=== PATIENT | male | born 1980 | race Caucasian/White ===

== ENCOUNTER 2017-08-29 11:18 | Emergency (ER) | payer OTHER ==
--- NOTE | 2017-08-29 12:32 | XR ---
EXAMINATION TYPE: XR elbow complete RT DATE OF EXAM: 08/29/2017 CLINICAL HISTORY: Pain after lifting injury. TECHNIQUE: Frontal, lateral and oblique images of the right elbow are obtained. COMPARISON: None FINDINGS: There is no acute fracture/dislocation evident in the right elbow. No abnormal fat pad si gns are seen. Tiny spur from the olecranon at triceps tendon attachment is noted . The overlying soft tissue appears unremarkable. IMPRESSION: There is no acute fracture or dislocation in the right elbow.
--- NOTE | 2017-08-29 12:50 | ED ---
Upper Extremity HPI - General Chief Complaint: Extremity Injury, Upper Stated Complaint: Arm injury Time Seen by Provider: 08/29/17 11:51 Source: patient, RN notes reviewed, old records reviewed Mode of arrival: ambulatory Limitations: no limitations - History of Present Illness Initial Comments: 37-year-old male presents emergency Department chief complaint of right middle elbow injury. Patient reports that he was lifting 600 pounds well-developed and lifting. He reports that he felt his medial biceps tendon snap. He states he felt it recoiled to his arm. 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 He also is in the [employer]. He is left-handed. Patient states he has pain with extension and flexion of the elbow. - Related Data Home Medications Medication Instructions Recorded Confirmed Testosterone Cypionate 300 mg IM TU 08/29/17 08/29/17 [Depo-Testosterone] Previous Rx's Medication Instructions Recorded Ibuprofen 600 mg PO TID #20 tablet 08/29/17 Allergies Allergy/AdvReac Type Severity Reaction Status Date / Time No Known Allergies Allergy Verified 08/29/17 12:06 Review of Systems ROS Statement: Those systems with pertinent positive or pertinent negative responses have been documented in the HPI. ROS Other: All systems not noted in ROS Statement are negative. 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 Alert and oriented. No distress. Limitations: no limitations General appearance: alert, in no apparent distress Head exam: Present: atraumatic, normocephalic, normal inspection Eye exam: Present: normal appearance, PERRL, EOMI. Absent: scleral icterus, conjunctival injection, periorbital swelling ENT exam: Present: normal exam, mucous membranes moist Neck exam: Present: normal inspection. Absent: tenderness, meningismus, lymphadenopathy Respiratory exam: Present: normal lung sounds bilaterally. Absent: respiratory distress, wheezes, rales, rhonchi, stridor Cardiovascular Exam: Present: regular rate, normal rhythm, normal heart sounds. Absent: systolic murmur, diastolic murmur, rubs, gallop, clicks GI/Abdominal exam: Present: soft, normal bowel sounds. Absent: distended, tenderness, guarding, rebound, rigid Right Shoulder Exam: Present: normal inspection, full ROM Upper Arm exam: Present: normal inspection, full ROM Elbow exam: Present: tenderness (over medial antecubital fossa), other (Able to palpatate end of bicep). Absent: normal inspection, full ROM (Patient reports pain with full extension and has limited flexion..) Forearm Wrist exam: Present: normal inspection, full ROM Hand Wrist exam: Present: normal inspection, full ROM Neuro motor exam: Present: wrist extension intact, thumb opposition intact, thumb IP flexion intact, thumb adduction intact, fingers 2-5 abduction intact Vascular: Present: normal capillary refill Back exam: Present: normal inspection Neurological exam: Present: alert, oriented X3, CN II-XII intact Psychiatric exam: Present: normal affect, normal mood Skin exam: Present: warm, dry, intact, normal color. Absent: rash Course Vital Signs 08/29/17 08/29/17 11:32 13:14 Temperature 98.3 F 98.2 F Pulse Rate 88 87 Respiratory 16 18 Rate Blood Pressure 133/74 150/76 O2 Sat by Pulse 100 98 Oximetry Procedures - Orthopedic Splinting/Casting Injury #1 Side: right Upper Extremity Injury Location: elbow Upper Extremity Immobilizer: sling/shoulder immobilizer Medical Decision Making - Medical Decision Making 37-year-old male presents emergency Department chief complaint of right elbow pain. He was doing a lift and felt a pop and snap in his biceps tendon. He states he was lifting 600 pounds. 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 Patient has palpable tendon in the antecubital fossa. He has pain with full extension and flexion. Patient has normal elbow x-ray. I met with the Patient in a sling and discussed close follow-up with vendor management specialist. Given a few referrals. I discussed the likely will need surgery for tendon repair. Patient agrees to treatment plan will comply. Return parameters were discussed. - Radiology Data Radiology results: report reviewed No acute fracture dislocation of the right elbow. Disposition Clinical Impression: Traumatic partial tear of right biceps tendon Disposition: HOME SELF-CARE Condition: Good Instructions: Tendon Rupture (ED) Additional Instructions: [facility]. Wear the sling. Type laboratory medication for pain. Patient should not to any further lifting until seen by orthopedic. Prescriptions: Ibuprofen 600 mg PO TID #20 tablet Is patient prescribed a controlled substance at d/c from ED?: No When asked, does pt state using other controlled substances?: No If prescribed controlled substance>3 days was MAPS reviewed?: No If opioid is for acute pain is fill amount 7 days or less?: No If Rx opioid, was Start Talking consent form obtained?: No Referrals: Kirk Menon MD [Primary Care Provider] - 1-2 days Chavez Dougherty MD [STAFF PHYSICIAN] - 1-2 days Avinash Farias MD [STAFF PHYSICIAN] - 1-2 days Time of Disposition: 13:05
[2017-08-29 13:15] VITALS: BP 150/76; PULSE 87; RESP 18; TEMP 98.2
== END 2017-08-29 13:21 | disposition home or self-care (01) ==
LOC: EDSEX → EC 11:18
DX: S46.211A Strain of muscle, fascia and tendon of other parts of biceps, right arm, initial encounter (principal); Z79.899 Other long term (current) drug therapy; Z85.47 Personal history of malignant neoplasm of testis; Z90.79 Acquired absence of other genital organ(s); X50.0XXA Overexertion from strenuous movement or load, initial encounter; Y93.B3 Activity, free weights
CPT/HCPCS: 99284

== ENCOUNTER → 2020-11-15 | Outpatient (CLI) | payer OTHER ==
--- NOTE | 2020-11-15 08:54 | US ---
EXAMINATION TYPE: US abd limited kidneys/bladder DATE OF EXAM: 11/15/2020 COMPARISON: NONE CLINICAL HISTORY: N18.2 Chronic kidney disease, stage 2 (mild). EXAM MEASUREMENTS: Liver Length: 12.0 cm Gallbladder Wall: 0.2 cm CBD: 0.4 cm Right Kidney: 10.8 x 6.5 x 5.6 cm Left Kidney: 10.9 x 5.3 x 6.1 cm Pancreas: Obscured by bowel gas Liver: wnl Gallbladder: No stones seen CBD: wnl Right Kidney: No hydronephrosis or masses seen Left Kidney: No hydronephrosis or masses seen Bladder: wnl Bilateral Jets Seen No Urinary bladder is included within the [id number]. Urinary bladder is sonolucent. Posterior wall a ppears normal. IMPRESSION: 1. Unremarkable ultrasound abdomen
== END | disposition home or self-care (01) ==
LOC: RADUSWWP 07:03
PROVIDERS: ATTEND Family Medicine
DX: N18.2 Chronic kidney disease, stage 2 (mild) (principal)
CPT/HCPCS: 76705; 76770